=== PATIENT | male | born 1970 | race Caucasian/White ===

== ENCOUNTER → 2019-01-11 | Outpatient (CLI) | payer BC ==
[~2019-01-11] MED LIST: ASPIRIN EC81 MG PO; FISH OIL 1,0001 EAC1 PO; GADOBENATE DIMEGLUMINE 1 ML IV ONE; IOPAMIDOL 300 MG/ML 15ML VIAL IT ONE; LEXAPRIL PO; LIDOCAINE HCL 1% LOCAL INJ 20 ML VIAL ONE; LORAZEPAM INJ 2 MG/ML VIAL ONE; SIMVASTATIN40 MG PO; TYLENOL PO; VITAMIN B PO; VITAMIN C PO
--- NOTE | 2019-01-11 14:25 | Diagnostic Imaging Report ---
MRI of the left shoulder with contrast. History: Shoulder pain. Labral tear. Comparison: None Technique: Multiplanar multisequence MRI of the shoulder after the administration of intra-articular gadolinium contrast material Findings: Rotator cuff: Mild rotator cuff tendinosis without tear, muscle atrophy or retraction. Osseous acromion complex: Type II acromion with mild lateral downsloping. Mild degenerative arthrosis at the acromioclavicular joint. Mild bone marrow edema in the distal clavicle with mild adjacent soft tissue edema likely stress related. Glenohumeral joint: Tearing of the anterior labrum best seen on series 2 image 11. The articular cartilage surfaces are slightly thin. The humeral head is well-seated in the glenoid fossa. Gadolinium contrast material is seen filling the shoulder joint. Biceps tendon: The biceps tendon is intact. Other findings: Negative for muscle denervation or osseous fracture. Impression: Tearing of the anterior labrum. Mild rotator cuff tendinosis without tear, muscle atrophy or retraction. Signed by: Dr. Terry Poole M.D. on 01/11/2019 2:21 PM
--- NOTE | 2019-01-11 14:40 | Diagnostic Imaging Report ---
PROCEDURE: Image guided left shoulder arthrogram Procedural Personnel Attending physician(s): Tg Jean MD Fellow physician(s): None Resident physician(s): None Advanced practice provider(s): None Pre-procedure diagnosis: Left shoulder pain, rotator cuff injury Post-procedure diagnosis: Same Indication: Left shoulder pain Additional clinical history: None Complications: No immediate complications. IMPRESSION: Fluoroscopically guided left shoulder arthrogram. PROCEDURE SUMMARY: - Fluoroscopically guided left shoulder arthrogram. PROCEDURE DETAILS: Pre-procedure Consent: Informed consent for the procedure including risks, benefits and alternatives was obtained and time-out was performed prior to the procedure. Preparation: The site was prepared and draped using maximal sterile barrier technique including cutaneous antisepsis. Anesthesia/sedation Level of anesthesia/sedation: Local 1% lidocaine Shoulder arthrogram: Literary Agent images were obtained. Under image guidance, a 22-gauge 3.5 inch spinal needle was advanced into the glenohumeral joint. The MR arthrogram cocktail was prepared with 0.15 cc gadolinium in 15 cc normal saline with 5 cc Isovue 300. When the needle was in appropriate position, intra-articular location was confirmed with a small injection of dilute Isovue 300. Subsequently, 12 cc of the MRI arthrogram cocktail was slowly injected to the glenohumeral joint. The needle was then removed, hemostasis easily achieved and a Band-Aid applied. Radiation Dose Fluoroscopy time (minutes): 2.1 Reference air kerma (mGy): 14.7 Additional Details Additional description of procedure: None Equipment details: None Specimens removed: None Estimated blood loss (mL): Less than 10 Attestation Signer name: Tg Jean MD I attest that I was present for the entire procedure. I reviewed the stored images and agree with the report as written. Signed by: Tg Jean MD on 01/11/2019 2:36 PM
== END ==
LOC: DX 10:57
PROVIDERS: ATTEND Specialist
DX: S43.432A Superior glenoid labrum lesion of left shoulder, initial encounter (principal)
CPT/HCPCS: 23350; 73222; 77002; A9577; J2060; Q9967; J2001

== ENCOUNTER → 2019-04-07 | Day surgery (SDC) | payer BC ==
[~2019-04-07] MED LIST changes: +CEFAZOLIN SOD 1 GM/NS 50ML 100 ML IV ONE; +DEXAMETHASONE SOD PHOS 10 MG/1 ML VIAL ONE; +DEXAMETHASONE SOD PHOS INJ 4 MG/ML VIAL ONE; +EPINEPHRINE 1 MG/ML 30ML VIAL ONE; +EPINEPHRINE HCL 1:1000 1ML 1 MG/ML AMP ONE; +FENTANYL CITRATE/PF 100MCG/2 ML INJ ONE; -GADOBENATE DIMEGLUMINE 1 ML IV ONE; +GLYCOPYRROLATE INJ 1MG/ 5 ML SYR ONE; +IBUPROFEN 800MG/ 250ML 250 ML IV ONE; -IOPAMIDOL 300 MG/ML 15ML VIAL IT ONE; +LIDOCAINE 2%/ EPINEPHRINE 20ML MDV ONE; -LIDOCAINE HCL 1% LOCAL INJ 20 ML VIAL ONE; +LIDOCAINE HCL 2% LOCAL INJ 5 ML SDV VIAL INJ ONE; +LISINOPRIL40 MG PO; -LORAZEPAM INJ 2 MG/ML VIAL ONE; +MIDAZOLAM HCL 2 MG/2 ML VIAL ONE; +NEOSTIGMINE 5 MG/5ML SYR ONE; +OMEPRAZOLE40 MG PO; +ONDANSETRON HCL INJ 2MG/ML 2ML 2 MG/ML VIAL ONE; +PHENYLEPHRINE HCL 1% 10 MG/ML VIAL ONE; +PROPOFOL IV EMULSION 10 MG/ML 20 ML VIAL ONE; +ROCURONIUM BROMIDE 10 MG/ML 5ML VIAL ONE; +ROPIVACAINE 0.5% 5 MG/ML 30 ML SDV ONE; +SEVOFLURANE INHAL SOLN 250 ML PEN BTL ONE
--- OUTSIDE RECORDS SUMMARY | 2019-04-07 07:11 | XMS REPORT ---
Author Author [facility] Address Unknown Phone Unavailable Care Team Providers Care Commercial Intern Name Role Phone STALIN CISNEROS Unavailable Unavailable Problems This patient has no known problems. Allergies, Adverse Reactions, Alerts This patient has no known allergies or adverse reactions. Medications This patient has no known medications. Results Test Description Test Time Test Comments Text Results Atomic Results Result Comments INJECTION ARTHROGRAM SHOULDER 2019-01-11 14:32:00 [place] [address] Patient Name: NIURKA LI MR #: [id number] : 1970 Age/Sex: 48/M Req #: [id number] [facility] Physician: Ordered by: STALIN CISNEROS MD Report #: [id number] Location: DX Room/Bed: Procedure: IR/INJECTION ARTHROGRAM SHOULDER Exam Date: 01/11/19 Exam Time: 1215 REPORT STATUS: Signed PROCEDURE: Image guided left shoulder arthrogram Procedural Personnel Attending physician(s): Maldonado Bloom MD Fellow physician(s): None Resident physician(s): None Advanced practice provider(s): None Pre-procedure diagnosis: Left shoulder pain, rotator cuff injury Post-procedure diagnosis: Same Indication: Left shoulder pain Additional clinical history: None Complications: No immediate complications. IMPRESSION: Fluoroscopically guided left shoulder arthrogram. PROCEDURE SUMMARY: - Fluoroscopically guided left shoulder arthrogram. PROCEDURE DETAILS: Pre-procedure Consent: Informed consent for the procedure including risks, benefits and alternatives was obtained and time-out was performed prior to the procedure. Preparation: The site was prepared and draped using maximal sterile barrier technique including cutaneous antisepsis. Anesthesia/sedation Level of anesthesia/sedation: Local 1% lidocaine Shoulder arthrogram: Senior Technical Specialist images were obtained. Under image guidance, a 22-gauge 3.5 inch spinal needle was advanced into the glenohumeral joint. The MR arthrogram cocktail was prepared with 0.15 cc gadolinium in 15 cc normal saline with 5 cc Isovue 300. When the needle was in appropriate position, intra-articular location was confirmed with a small injection of dilute Isovue 300. Subsequently, 12 cc of the MRI arthrogram cocktail was slowly injected to the glenohumeral joint. The needle was then removed, hemostasis easily achieved and a Band-Aid applied. Radiation Dose Fluoroscopy time (minutes): 2.1 Reference air kerma (mGy): 14.7 Additional Details Additional description of procedure: None Equipment details: None Specimens removed: None Estimated blood loss (mL): Less than 10 Attestation Signer name: Maldonado Bloom MD I attest that I was present for the entire procedure. I reviewed the stored images and agree with the report as written. Signed by: Maldonado Bloom MD on 01/11/2019 2:36 PM Dictated By: MALDONADO BLOOM MD [id number] Transcribed By: AUSTIN on 01/11/19 143 COPY TO: STALIN CISNEROS MD MRI SHOULDER LEFT W 2019-01-11 14:17:00 [place] [address] Patient Name: NIURKA LI MR #: [id number] : 1970 Age/Sex: 48/M Req #: [id number] Adm Physician: Ordered by: STALIN CISNEROS MD Report #: [id number] Location: DX Room/Bed: Procedure: [id number] MRI/MRI SHOULDER LEFT W Exam Date: Exam Time: REPORT STATUS: Signed MRI of the left shoulder with contrast. History: Shoulder p ain. Labral tear. Comparison: None Technique: Multiplanar multisequence MRI of the shoulder after the administration of intra-articular gadolinium contrast material Findings: Rotator cuff: Mild rotator cuff tendinosis without tear, muscle atrophy or retraction. Osseous acromion complex: Type II acromion with mild lateral downsloping. Mild degenerative arthrosis at the acromioclavicular joint. Mild bone marrow edema in the distal clavicle with mild adjacent soft tissue edema likely stress related. Glenohumeral joint: Tearing of the anterior labrum best seen on series 2 image 11. The articular cartilage surfaces are slightly thin. The humeral head is well-seated in the glenoid fossa. Gadolinium contrast material is seen filling the shoulder joint. Biceps tendon: The biceps tendon is intact. Other findings: Negative for muscle denervation or osseous fracture. Impression: Tearing of the anterior labrum. Mild rotator cuff tendinosis without tear, muscle atrophy or retraction. Signed by: Dr. Terry Poole M.D. on 01/11/2019 2:21 PM Dictated By: TERRY POOLE MD, MD 142 Transcribed By: AUSTIN on 01/11/19 142 COPY TO: STALIN CISNEROS MD
[2019-04-07 11:19] VITALS: BP 111/64
--- NOTE | 2019-04-08 16:37 | Operative Report ---
DATE OF PROCEDURE: 04/07/2019 SURGEON: Satish Good MD PREOPERATIVE DIAGNOSIS: Left shoulder labral tear. POSTOPERATIVE DIAGNOSES: 1. Left shoulder partial biceps tendon tear. 2. Left shoulder partial rotator cuff tear. 3. Left shoulder synovitis. OPERATIONS AND PROCEDURES PERFORMED: The patient underwent a left shoulder examination under anesthesia, left shoulder arthroscopy, left shoulder arthroscopic debridement of synovitis, left shoulder arthroscopic debridement of the partial rotator cuff tear, left shoulder arthroscopic debridement of the partial biceps tendon tear, and left shoulder arthroscopic subacromial decompression and acromioplasty. ELECTION CLERK: DIOMEDES Macario. ANESTHESIA: General endotracheal intubation anesthesia. IV FLUIDS: Per the anesthesia record. BRIEF DESCRIPTION OF THE PATIENT'S OPERATIVE PROCEDURE: Mr. Matthew was taken to the operating room, placed in supine position on the operating table. Following induction of general anesthesia as well as endotracheal intubation, the patient's left upper extremity was examined under anesthesia. He was found to have full range of motion of the left shoulder. There was no evidence of instability. The patient's upper extremity was then prepped and draped in standard surgical fashion. Standard posterior, lateral, and anterior portals were created without difficulty. The scope was placed within the shoulder joint atraumatically. Examination of the glenohumeral articulation demonstrated no evidence of chondromalacia. There were no loose bodies in the shoulder joint. Examination of the rotator cuff tissue demonstrated a partially torn leading edge of the rotator cuff. A probe was placed within the shoulder joint and examination of that labrum demonstrated no evidence of a tear of the anterior labrum as described by his MRI examination. There was, however, fraying of the biceps anchor. The anchor was firmly attached to the glenoid. There was mild synovitis within the shoulder joint. A shaver was placed in the shoulder joint and synovitis was debrided. The biceps anchor was also widely debrided. The partial-thickness rotator cuff injury was debrided at this time. Further probing of the rotator cuff injury demonstrated that the tear was less than 50% of the thickness of the rotator cuff tendon insertion. The shoulder was then deflated with sterile normal saline. The scope was then transferred to the subacromial space and a lateral portal was created with an outside in technique. There was significant bursal inflammation in the subacromial space. A shaver was placed in the shoulder joint and a bursectomy was performed. The bursal surface of the rotator cuff was also evaluated and found to have no evidence of tearing. There was a downward sloping acromion. The coracoacromial ligament was resected and an aggressive acromioplasty was performed. The shoulder was then deflated with sterile saline. The portal sites were closed and sterile dressings were applied. The patient was provided a sling, awakened, and taken to the postanesthesia care unit in stable condition. MD WILLIAM Greene/BRIANA /[id number]
== END | disposition home or self-care (01) ==
LOC: OR 07:09
PROVIDERS: ATTEND Specialist
DX: S46.212A Strain of muscle, fascia and tendon of other parts of biceps, left arm, initial encounter (principal); S46.012A Strain of muscle(s) and tendon(s) of the rotator cuff of left shoulder, initial encounter; M65.812 Other synovitis and tenosynovitis, left shoulder; Z01.810 Encounter for preprocedural cardiovascular examination; K21.9 Gastro-esophageal reflux disease without esophagitis; I10 Essential (primary) hypertension; E78.5 Hyperlipidemia, unspecified
CPT/HCPCS: 29822; 29826; 93005; J0171; J0690; J1100 ×2; J2001 ×2; J2250; J2370; J2405; J2704; J2795; J3010; J3490